=== PATIENT | female | born 1940 | race Caucasian/White ===

== ENCOUNTER 2017-04-16 13:59 | Outpatient (CLI) | payer OTHER ==
--- NOTE | 2017-04-16 14:51 | Mammography Report ---
Bilateral digital screening mammogram with CAD. History: Cancer screening. Comparison study is dated February 02, 2016. Findings: There are scattered fibroglandular densities. Coarse calcifications adjacent to a nodular density in the left upper-outer breast are stable and appear benign. A few scattered additional calcifications are also benign. The 4 mm nodular opacity in the upper-outer quadrant right breast is stable. No architectural distortion or other suspicious findings are seen. Impression: Stable benign findings. BI-RADS code: 2. Recommendation: Annual screening.
== END 2017-04-16 14:00 | disposition home or self-care (01) ==
LOC: MAMMO 13:59
PROVIDERS: ATTEND Internal Medicine
DX: Z12.31 Encounter for screening mammogram for malignant neoplasm of breast (principal)
CPT/HCPCS: 77067; G0202